=== PATIENT | male | born 1945 | race Caucasian/White ===

== ENCOUNTER 2021-06-19 11:39 | Emergency (ER) | payer OTHER ==
[2021-06-19 12:04] VITALS: BP 133/75; PULSE 96
== END 2021-06-19 14:45 | disposition home or self-care (01) ==
LOC: LB.ED 11:39
DX: S01.01XA Laceration without foreign body of scalp, initial encounter (principal); M46.92 Unspecified inflammatory spondylopathy, cervical region; E78.00 Pure hypercholesterolemia, unspecified; I10 Essential (primary) hypertension; E11.9 Type 2 diabetes mellitus without complications; Z87.891 Personal history of nicotine dependence; Z79.82 Long term (current) use of aspirin; Z79.899 Other long term (current) drug therapy; X58.XXXA Exposure to other specified factors, initial encounter
CPT/HCPCS: 12001; 70450; 72125; 99282; 99283-25

== ENCOUNTER 2021-10-20 15:03 | Emergency (ER) | payer OTHER ==
[~2021-10-20 15:03] MED LIST: Azithromycin 250 MG Tab ONE
[2021-10-20] MEDS: Sodium Chloride 0.9% 1,000 ML IV ONE (15:33)
[2021-10-20] MEDS: Sodium Chloride 0.9% 1,000 ML IV SCH (16:39)
[2021-10-20 17:07] LABS: TROPONIN I HIGH SENSITIVITY 7.8 pg/ml (<=60.4)
[2021-10-20 19:43] VITALS: PULSE 103
[2021-10-20 19:45] VITALS: BP 154/88
== END 2021-10-20 18:25 | disposition home or self-care (01) ==
LOC: LB.ED 15:03
DX: E86.0 Dehydration (principal); D72.829 Elevated white blood cell count, unspecified; I10 Essential (primary) hypertension; E11.9 Type 2 diabetes mellitus without complications; Z20.822 Contact with and (suspected) exposure to COVID-19; Z79.899 Other long term (current) drug therapy; Z79.82 Long term (current) use of aspirin; W18.2XXA Fall in (into) shower or empty bathtub, initial encounter
CPT/HCPCS: 36415; 71045; 80053; 81001; 83605; 83880; 84484; 85025; 93010; 96360; 96361; 99282; 99285-25; A0425; A0429; A9270-GY; J7030; U0002

== ENCOUNTER 2022-05-23 11:50 | Inpatient (IN) | payer OTHER ==
[2022-05-23] MEDS ORDERED: Sodium Chloride 0.9% 10 ML Syringe FLUSH PRN (12:15)
[2022-05-23] MEDS: Sodium Chloride 0.9% 1,000 ML IV SCH (12:41)
[2022-05-23 13:46] LABS: CORONAVIRUS COVID-19 NAA NEGATIVE (NEGATIVE)
[2022-05-23] MEDS ORDERED: Ketorolac 30 MG/ML SDV ONE (15:20)
[2022-05-23] MEDS ORDERED: Menthol/Zinc Oxide Ointment 113 GM Tube TOP ONE (15:20)
[2022-05-23] MEDS ORDERED: Ketorolac 30 MG/ML SDV IVPUSH ONE (15:28)
[2022-05-23] MEDS ORDERED: Menthol/Zinc Oxide Ointment 113 GM Tube TOP PRN (15:32)
[2022-05-23] MEDS ORDERED: Loperamide 2 MG Cap PO PRN (15:44)
[2022-05-23] MEDS ORDERED: Azithromycin 500 MG Tab PO ONE (17:06)
[2022-05-23] MEDS: metFORMIN 500 MG Tab PO SCH (20:10)
[2022-05-23] MEDS: atorvaSTATin 10 MG Tab PO SCH (20:10)
[2022-05-23] MEDS: Ascorbic Acid 500 MG Tab PO SCH (20:10)
[2022-05-23] MEDS: Tamsulosin 0.4 MG Cap.ER PO SCH (20:10)
[2022-05-24] MEDS ORDERED: cefTRIAXone 1 GM in Sodium Chloride 0.9% 50 ML IV SCH (01:00)
[2022-05-24] MEDS: Acetaminophen 325 MG Tab PO PRN ×2 (01:29→11:45)
[2022-05-24] MEDS: Sodium Chloride 0.9% 1,000 ML IV SCH ×3 (01:36→21:11)
[2022-05-24] MEDS: Acetaminophen/oxyCODONE 325-5 MG Tab PO PRN ×2 (07:54→17:55)
[2022-05-24] MEDS: Ferrous Sulfate 325 MG Tab PO SCH (07:55)
[2022-05-24] MEDS: Aspirin 81 MG Tab.EC PO SCH (07:55)
[2022-05-24] MEDS: Cetirizine 10 MG Tab PO SCH (07:56)
[2022-05-24] MEDS: Finasteride 5 MG Tab PO SCH (07:56)
[2022-05-24] MEDS: Ascorbic Acid 500 MG Tab PO SCH ×2 (07:56→19:42)
[2022-05-24] MEDS: metFORMIN 500 MG Tab PO SCH ×2 (07:57→19:41)
[2022-05-24] MEDS: Tamsulosin 0.4 MG Cap.ER PO SCH ×2 (07:57→19:41)
[2022-05-24] MEDS: Azithromycin 250 MG Tab PO SCH (07:57)
[2022-05-24] MEDS: Montelukast 10 MG Tab PO SCH (07:58)
[2022-05-24] MEDS ORDERED: Azithromycin 250 MG Tab PO SCH (08:00)
[2022-05-24] MEDS ORDERED: Loratadine 10 MG Tab PO SCH (08:00)
[2022-05-24] MEDS ORDERED: Cholecalciferol (Vitamin D3) 10 MCG Tab PO SCH (08:00)
[2022-05-24] MEDS ORDERED: GUAIFENESIN 200 MG PO SCH (08:00)
[2022-05-24] MEDS: Lisinopril 10 MG Tab PO SCH (08:04)
[2022-05-24] MEDS: amLODIPine 5 MG Tab PO SCH (08:04)
[2022-05-24 11:08] LABS: CORONAVIRUS COVID-19 NAA NEGATIVE (NEGATIVE)
[2022-05-24] MEDS: Cholecalciferol (Vitamin D3) 25 MCG Tab PO SCH (11:44)
[2022-05-24] MEDS: Non-Formulary Medication 1 Each (Empagliflozin [Jardiance] 25 MG Tablet) PO SCH (11:44)
[2022-05-24] MEDS: guaiFENesin 600 MG Tab.ER PO SCH (11:44)
[2022-05-24] MEDS: Ketorolac 60 MG/2 ML SDV IVPUSH PRN ×2 (12:15→20:28)
[2022-05-24] MEDS: atorvaSTATin 10 MG Tab PO SCH (19:42)
[2022-05-24] MEDS: cefTRIAXone 1 GM in Sodium Chloride 0.9% 50 ML IV SCH (19:42)
[2022-05-25] MEDS: Acetaminophen 325 MG Tab PO PRN ×4 (03:45→22:16)
[2022-05-25] MEDS: Sodium Chloride 0.9% 1,000 ML IV SCH ×2 (04:55→14:34)
[2022-05-25] MEDS: Tamsulosin 0.4 MG Cap.ER PO SCH ×2 (08:29→20:12)
[2022-05-25] MEDS: guaiFENesin 600 MG Tab.ER PO SCH (08:29)
[2022-05-25] MEDS: Azithromycin 250 MG Tab PO SCH (08:29)
[2022-05-25] MEDS: Cholecalciferol (Vitamin D3) 25 MCG Tab PO SCH (08:29)
[2022-05-25] MEDS: Aspirin 81 MG Tab.EC PO SCH (08:29)
[2022-05-25] MEDS: Cetirizine 10 MG Tab PO SCH (08:30)
[2022-05-25] MEDS: Finasteride 5 MG Tab PO SCH (08:30)
[2022-05-25] MEDS: Ascorbic Acid 500 MG Tab PO SCH ×2 (08:30→20:11)
[2022-05-25] MEDS: Ferrous Sulfate 325 MG Tab PO SCH (08:31)
[2022-05-25] MEDS: Montelukast 10 MG Tab PO SCH (08:31)
[2022-05-25] MEDS: Non-Formulary Medication 1 Each (Empagliflozin [Jardiance] 25 MG Tablet) PO SCH (08:31)
[2022-05-25] MEDS: metFORMIN 500 MG Tab PO SCH ×2 (08:31→20:12)
[2022-05-25] MEDS: Lisinopril 10 MG Tab PO SCH (08:33)
[2022-05-25] MEDS: amLODIPine 5 MG Tab PO SCH (08:33)
[2022-05-25] MEDS: Ketorolac 60 MG/2 ML SDV IVPUSH PRN ×2 (12:36→22:14)
[2022-05-25] MEDS ORDERED: Vancomycin 1 GM SDV ONE (16:08)
[2022-05-25] MEDS: cefTRIAXone 1 GM in Sodium Chloride 0.9% 50 ML IV SCH (20:11)
[2022-05-25] MEDS: atorvaSTATin 10 MG Tab PO SCH (20:12)
[2022-05-25] MEDS: Acetaminophen/oxyCODONE 325-5 MG Tab PO PRN (20:12)
[2022-05-26] MEDS: Sodium Chloride 0.9% 1,000 ML IV SCH ×3 (02:00→08:27)
[2022-05-26] MEDS: Tamsulosin 0.4 MG Cap.ER PO SCH (07:18)
[2022-05-26] MEDS: Aspirin 81 MG Tab.EC PO SCH (07:18)
[2022-05-26] MEDS: Cetirizine 10 MG Tab PO SCH (07:18)
[2022-05-26] MEDS: Finasteride 5 MG Tab PO SCH (07:18)
[2022-05-26] MEDS: metFORMIN 500 MG Tab PO SCH (07:18)
[2022-05-26] MEDS: Montelukast 10 MG Tab PO SCH (07:18)
[2022-05-26] MEDS: amLODIPine 5 MG Tab PO SCH (07:18)
[2022-05-26] MEDS: Ascorbic Acid 500 MG Tab PO SCH (07:19)
[2022-05-26] MEDS: Ferrous Sulfate 325 MG Tab PO SCH (07:19)
[2022-05-26] MEDS: Azithromycin 250 MG Tab PO SCH (07:20)
[2022-05-26] MEDS: Lisinopril 10 MG Tab PO SCH (07:20)
[2022-05-26] MEDS: Ketorolac 60 MG/2 ML SDV IVPUSH PRN (07:21)
[2022-05-26] MEDS: Cholecalciferol (Vitamin D3) 25 MCG Tab PO SCH (07:21)
[2022-05-26] MEDS: guaiFENesin 600 MG Tab.ER PO SCH (07:21)
[2022-05-26 07:24] VITALS: PULSE 103
[2022-05-26] MEDS: Non-Formulary Medication 1 Each (Empagliflozin [Jardiance] 25 MG Tablet) PO SCH (07:34)
[2022-05-26] MEDS ORDERED: Lactobacillus Acidophilus/Lactobacillus Sporogenes (Probiotic) Tab PO SCH (08:00)
[2022-05-26] MEDS ORDERED: Polyethylene Glycol 3350 Powder 17 GM Packet PO SCH (08:30)
[2022-05-26] MEDS: Acetaminophen/oxyCODONE 325-5 MG Tab PO PRN (08:36)
[2022-05-26 13:14] VITALS: BP 182/79
== END 2022-05-26 13:10 | DRG 872 ==
LOC: LB.ED 11:50 → LB.MS 14:55
PROVIDERS: ADMIT Surgery; ATTEND Surgery
DX: A41.9 Sepsis, unspecified organism (principal); E11.9 Type 2 diabetes mellitus without complications; G20 Parkinson's disease; I10 Essential (primary) hypertension; R51.9 Headache, unspecified; Z20.822 Contact with and (suspected) exposure to COVID-19; Z79.4 Long term (current) use of insulin; W18.30XA Fall on same level, unspecified, initial encounter; Y92.009 Unspecified place in unspecified non-institutional (private) residence as the place of occurrence of the external cause
CPT/HCPCS: 0240U; 36415; 51798; 71045; 72131; 80048; 80053; 80202; 81001; 82150; 82947; 83605; 85025; 85027; 87040; 87081; 93005; 96360; 99222; 99232; 99238; 99285-25; A0425; A0429; A9270-GY; J0696; J1885; J3370; J7030; J7050

== ENCOUNTER 2024-09-27 14:36 | Emergency (ER) | payer MEDICARE ==
[2024-09-27 16:54] VITALS: PULSE 77
[2024-09-27 16:55] VITALS: BP 160/87
== END 2024-09-27 16:30 ==
LOC: LB.ED 14:36
DX: S51.811A Laceration without foreign body of right forearm, initial encounter (principal); S00.03XA Contusion of scalp, initial encounter; S70.01XA Contusion of right hip, initial encounter; I10 Essential (primary) hypertension; E11.9 Type 2 diabetes mellitus without complications; E78.00 Pure hypercholesterolemia, unspecified; Z79.899 Other long term (current) drug therapy; Z79.82 Long term (current) use of aspirin; Z79.1 Long term (current) use of non-steroidal anti-inflammatories (NSAID); W19.XXXA Unspecified fall, initial encounter
CPT/HCPCS: 73502-RT; 99283; A9270-GY